=== PATIENT | male | born 1990 | race Asian ===

== ENCOUNTER → 2021-04-05 | Day surgery (SDC) | payer OTHER ==
[~2021-04-05] MED LIST: ACETAMINOPHEN/CODEINE 300MG - 30MG TAB ONE; DEXAMETHASONE SOD PHOS INJ 4 MG/ML SDV ONE; FENTANYL CITRATE/PF 100MCG/2 ML INJ ONE; LIDOCAINE HCL 2% LOCAL INJ 5 ML SDV VIAL INJ ONE; MEN'S MULTIVIT1 EACH PO; MIDAZOLAM HCL 2 MG/2 ML VIAL ONE; MUCINEX600 MG PO; ONDANSETRON HCL INJ 2MG/ML 2ML 2 MG/ML VIAL ONE; POVIDONE IODINE 0.05% 0.05 % ML PO ONE; PROPOFOL IV EMULSION 10 MG/ML 20 ML VIAL ONE; SEVOFLURANE INHAL SOLN 250 ML PEN BTL ONE; SODIUM CHLORIDE 0.9% 50ML 50 ML ONE; TURMERIC1 GM PO
[2021-04-05 09:15] VITALS: BP 131/78
== END | disposition home or self-care (01) ==
LOC: OR 05:37
PROVIDERS: ATTEND Urology
DX: N47.1 Phimosis (principal); Z01.812 Encounter for preprocedural laboratory examination; Z20.822 Contact with and (suspected) exposure to COVID-19
CPT/HCPCS: 54001; J0690; J1100; J2001; J2250; J2405; J2704; J3010; U0002